=== PATIENT | female | born 1935 | race Caucasian/White ===

== ENCOUNTER → 2016-07-18 | Outpatient (CLI) | payer MEDICARE, OTHER ==
[2016-07-18 18:12] LABS: ALBUMIN 3.4 GM/DL (3.2-5.2); ALBUMIN/GLOBULIN RATIO 0.97 (1.00-1.93); ALKALINE PHOSPHATASE 77 U/L (45-117); ALT/SGPT 14 U/L (12-78); ANION GAP 4 MEQ/L (8-16); AST/SGOT 12 U/L (15-37); BILIRUBIN,TOTAL 0.3 MG/DL (0.2-1.0); BLOOD UREA NITROGEN 20 MG/DL (7-18); CALCIUM LEVEL 8.4 MG/DL (8.8-10.2); CARBON DIOXIDE LEVEL 34 MEQ/L (21-32); CHLORIDE LEVEL 106 MEQ/L (98-107); CHOLESTEROL LEVEL 194 MG/DL (<200); GLOMERULAR FILTRATION RATE > 60.0 (>32); GLUCOSE, FASTING 91 MG/DL (83-110); POTASSIUM SERUM 4.8 MEQ/L (3.5-5.1); SODIUM LEVEL 144 MEQ/L (136-145); TOTAL PROTEIN 6.9 GM/DL (6.4-8.2); TRIGLYCERIDES LEVEL 161 MG/DL (<150)
== END ==
LOC: M WUC 10:50
PROVIDERS: ATTEND Internal Medicine
DX: E11.9 Type 2 diabetes mellitus without complications (principal); E78.00 Pure hypercholesterolemia, unspecified

== ENCOUNTER → 2016-12-30 | Outpatient (REF) | payer MEDICARE, OTHER ==
[~2016-12-30] MED LIST: DICL75TA PO; DRIS50002 PO; FENT10PA TD; METF500T4 PO
[2016-12-30 19:35] LABS: MEAN CORPUSCULAR HEMOGLOBIN 29.7 pg (27.0-33.0); MEAN CORPUSCULAR HGB CONC 32.6 g/dl (32.0-36.5); RED CELL DISTRIBUTION WIDTH 13.9 % (11.5-14.5); WHITE BLOOD COUNT 7.4 K/mm3 (4.0-10.0)
[2016-12-30 19:52] LABS: ALBUMIN 3.3 GM/DL (3.2-5.2); ALBUMIN/GLOBULIN RATIO 0.97 (1.00-1.93); ALKALINE PHOSPHATASE 66 U/L (45-117); ALT/SGPT 16 U/L (12-78); ANION GAP 7 MEQ/L (8-16); AST/SGOT 16 U/L (15-37); BILIRUBIN,TOTAL 0.4 MG/DL (0.2-1.0); BLOOD UREA NITROGEN 19 MG/DL (7-18); CALCIUM LEVEL 9.1 MG/DL (8.8-10.2); CARBON DIOXIDE LEVEL 28 MEQ/L (21-32); CHLORIDE LEVEL 107 MEQ/L (98-107); CHOLESTEROL LEVEL 217 MG/DL (<200); CREATININE FOR GFR 0.68 MG/DL (0.55-1.02); GLOMERULAR FILTRATION RATE > 60.0 (>32); GLUCOSE, FASTING 85 MG/DL (83-110); POTASSIUM SERUM 4.5 MEQ/L (3.5-5.1); SODIUM LEVEL 142 MEQ/L (136-145); TOTAL PROTEIN 6.7 GM/DL (6.4-8.2); TRIGLYCERIDES LEVEL 88 MG/DL (<150)
== END ==
LOC: M SFHCPLAZ 17:25
PROVIDERS: ATTEND Internal Medicine
DX: Z51.81 Encounter for therapeutic drug level monitoring (principal); Z79.899 Other long term (current) drug therapy; E11.9 Type 2 diabetes mellitus without complications; E78.00 Pure hypercholesterolemia, unspecified; E03.9 Hypothyroidism, unspecified; Z79.84 Long term (current) use of oral hypoglycemic drugs
CPT/HCPCS: 36415; 80053; 80061; 83036; 84443; 85027; G0463

== ENCOUNTER 2017-02-27 13:15 | Emergency (ER) | payer MEDICARE, OTHER ==
[~2017-02-27] VITALS: Ht 157.5 cm; Wt 90.5 kg
[2017-02-27] MEDS ORDERED: FENT10PA TD (13:22)
[2017-02-27] MEDS ORDERED: METF500T4 PO (13:22)
[2017-02-27] MEDS ORDERED: DRIS50002 PO (13:22)
--- NOTE | 2017-02-27 15:59 | REP ---
Clinical: Pain and swelling without acute trauma. Technique: AP, lateral, bilateral oblique views of the left hand. Findings: Advanced arthritic and possibly chronic post traumatic degenerative changes are appreciated involving the wrist. Findings include osteopenia with scattered cystic changes throughout the carpal bones as well as erosive/destructive changes involving the scaphoid and lunate bone as well as chronic subluxation at the first carpometacarpal joint and extensive chondrocalcinosis. Longstanding erosive changes along the radial surface are also noted. Overlying soft tissue swelling identified. The metacarpal an and phalangeal bones demonstrate osteopenia and more subtle degenerative changes including joint space narrowing at the interphalangeal joints. Impression: Diffuse swelling and erosive/destructive arthritic degenerative changes primarily noted at the wrist as described above. Findings may represent changes related to both osteoarthritis and inflammatory arthritides. Signed by Stoney Daniel MD 02/27/2017 03:51 P
--- NOTE | 2017-02-27 16:01 | REP ---
Clinical: Pain and swelling without acute trauma. Technique: AP, lateral, bilateral oblique views of the left wrist. Findings: Advanced arthritic and possibly chronic post traumatic degenerative changes are appreciated involving the wrist. Findings include osteopenia with scattered cystic changes throughout the carpal bones as well as erosive/destructive changes involving the scaphoid and lunate bone as well as chronic subluxation at the first carpometacarpal joint and extensive chondrocalcinosis. Longstanding erosive changes along the radial surface are also noted. Overlying soft tissue swelling identified. The metacarpal and first digit phalangeal bones demonstrate osteopenia and more subtle degenerative changes including joint space narrowing and periarticular spurring. Impression: Diffuse swelling and erosive/destructive arthritic degenerative changes primarily noted at the wrist as described above. Findings may represent changes related to both osteoarthritis and inflammatory arthritides. Signed by Stoney Daniel MD 02/27/2017 03:53 P
[2017-02-27] MEDS ORDERED: DICL75TA PO (16:19)
[2017-02-27 16:35] VITALS: BP 150/85
== END 2017-02-27 16:36 | disposition home or self-care (01) ==
LOC: M ED 13:15
DX: M19.032 Primary osteoarthritis, left wrist (principal); M19.042 Primary osteoarthritis, left hand; Z87.891 Personal history of nicotine dependence

== ENCOUNTER → 2017-10-22 | Outpatient (CLI) | payer MEDICARE, OTHER ==
[2017-10-22 18:40] LABS: HEMATOCRIT 44.3 % (36.0-47.0); HEMOGLOBIN 13.9 g/dl (12.0-15.5); MEAN CORPUSCULAR HEMOGLOBIN 28.7 pg (27.0-33.0); MEAN CORPUSCULAR HGB CONC 31.4 g/dl (32.0-36.5); MEAN CORPUSCULAR VOLUME 91.3 fl (80.0-96.0); PLATELET COUNT, AUTOMATED 202 10^3/uL (150-450); RED BLOOD COUNT 4.85 10^6/uL (4.00-5.40); RED CELL DISTRIBUTION WIDTH 14.3 % (11.5-14.5)
[2017-10-22 19:10] LABS: ESTIMATED AVERAGE GLUCOSE 123 MG/DL (60-110); HEMOGLOBIN A1c 5.9 %
[2017-10-22 19:11] LABS: TOTAL 25(OH) VITAMIN D 43.9 NG/ML (30.0-100.0)
[2017-10-22 19:16] LABS: ALBUMIN 3.4 GM/DL (3.2-5.2); ALBUMIN/GLOBULIN RATIO 0.97 (1.00-1.93); ALKALINE PHOSPHATASE 72 U/L (45-117); ALT/SGPT 10 U/L (12-78); ANION GAP 4 MEQ/L (8-16); AST/SGOT 12 U/L (7-37); BILIRUBIN,TOTAL 0.4 MG/DL (0.2-1.0); BLOOD UREA NITROGEN 19 MG/DL (7-18); CALCIUM LEVEL 8.6 MG/DL (8.8-10.2); CARBON DIOXIDE LEVEL 33 MEQ/L (21-32); CHLORIDE LEVEL 106 MEQ/L (98-107); CHOLESTEROL LEVEL 188 MG/DL (<200); CHOLESTEROL RISK RATIO 4.272 (<5); GLOMERULAR FILTRATION RATE > 60.0 (>32); GLUCOSE, FASTING 80 MG/DL (70-100); HDL CHOLESTEROL 44 MG/DL (>40); LDL CHOLESTEROL 126.2 MG/DL (<100); NON-HDL-C 144 MG/DL; POTASSIUM SERUM 4.4 MEQ/L (3.5-5.1); SODIUM LEVEL 143 MEQ/L (136-145); TOTAL PROTEIN 6.9 GM/DL (6.4-8.2); TRIGLYCERIDES LEVEL 89 MG/DL (<150)
== END ==
LOC: M WUC 11:36
DX: G25.81 Restless legs syndrome (principal); E11.9 Type 2 diabetes mellitus without complications; E78.00 Pure hypercholesterolemia, unspecified; E03.9 Hypothyroidism, unspecified; E55.9 Vitamin D deficiency, unspecified
CPT/HCPCS: 84443

== ENCOUNTER → 2017-10-26 | Outpatient (REF) | payer MEDICARE, OTHER | LOC: M SFHCPLAZ 16:02 | DX: G25.81 Restless legs syndrome (principal); E55.9 Vitamin D deficiency, unspecified; E11.9 Type 2 diabetes mellitus without complications; E78.00 Pure hypercholesterolemia, unspecified; E03.9 Hypothyroidism, unspecified; Z53.8 Procedure and treatment not carried out for other reasons ==

== ENCOUNTER → 2018-05-05 | Outpatient (REF) | payer MEDICARE, OTHER ==
[2018-05-05 12:40] LABS: CREATININE, URINE 63.9 MG/DL; MALB URINE SIEMENS 11.2 MG/L; MAU/CREAT RATIO 17.5 MCG/MG (0.0-30.0)
[2018-05-05 12:44] LABS: ALBUMIN 3.1 GM/DL (3.2-5.2); ALBUMIN/GLOBULIN RATIO 0.97 (1.00-1.93); ALKALINE PHOSPHATASE 71 U/L (45-117); ALT/SGPT 9 U/L (12-78); ANION GAP 5 MEQ/L (8-16); AST/SGOT 11 U/L (7-37); BILIRUBIN,TOTAL 0.3 MG/DL (0.2-1.0); BLOOD UREA NITROGEN 16 MG/DL (7-18); CALCIUM LEVEL 9.3 MG/DL (8.8-10.2); CARBON DIOXIDE LEVEL 31 MEQ/L (21-32); CHLORIDE LEVEL 107 MEQ/L (98-107); CHOLESTEROL LEVEL 209 MG/DL (<200); CHOLESTEROL RISK RATIO 4.446 (<5); CREATININE FOR GFR 0.87 MG/DL (0.55-1.30); GLOMERULAR FILTRATION RATE > 60.0 (>32); GLUCOSE, FASTING 98 MG/DL (70-100); HDL CHOLESTEROL 47 MG/DL (>40); LDL CHOLESTEROL 147 MG/DL (<100); NON-HDL-C 162 MG/DL; POTASSIUM SERUM 4.8 MEQ/L (3.5-5.1); SODIUM LEVEL 143 MEQ/L (136-145); TOTAL PROTEIN 6.3 GM/DL (6.4-8.2); TRIGLYCERIDES LEVEL 77 MG/DL (<150)
[2018-05-05 12:46] LABS: ESTIMATED AVERAGE GLUCOSE 114 MG/DL (60-110); HEMOGLOBIN A1c 5.6 %
== END ==
LOC: M SFHCPLAZ 09:04
DX: E11.9 Type 2 diabetes mellitus without complications (principal); E78.00 Pure hypercholesterolemia, unspecified; E03.9 Hypothyroidism, unspecified
CPT/HCPCS: 84443

== ENCOUNTER → 2018-12-05 | Outpatient (CLI) | payer MEDICARE, OTHER ==
[~2018-12-05] MED LIST changes: -DRIS50002 PO; +DRIS50003 PO
[2018-12-05 18:14] LABS: ALBUMIN 3.3 GM/DL (3.2-5.2); ALT/SGPT 10 U/L (12-78); BILIRUBIN,TOTAL 0.3 MG/DL (0.2-1.0); BLOOD UREA NITROGEN 12 MG/DL (7-18); CALCIUM LEVEL 9.2 MG/DL (8.8-10.2); CARBON DIOXIDE LEVEL 35 MEQ/L (21-32); CHLORIDE LEVEL 103 MEQ/L (98-107); CHOLESTEROL LEVEL 197 MG/DL (<200); CHOLESTEROL RISK RATIO 4.191 (<5); CREATININE FOR GFR 0.84 MG/DL (0.55-1.30); GLOMERULAR FILTRATION RATE > 60.0 (>32); GLUCOSE, FASTING 84 MG/DL (70-100); HDL CHOLESTEROL 47 MG/DL (>40); HEMATOCRIT 47.2 % (36.0-47.0); LDL CHOLESTEROL 132 MG/DL (<100); MEAN CORPUSCULAR HEMOGLOBIN 28.2 pg (27.0-33.0); MEAN CORPUSCULAR HGB CONC 31.8 g/dl (32.0-36.5); MEAN CORPUSCULAR VOLUME 88.7 fl (80.0-96.0); NON-HDL-C 150 MG/DL; PLATELET COUNT, AUTOMATED 257 10^3/uL (150-450); RED BLOOD COUNT 5.32 10^6/uL (4.00-5.40); SODIUM LEVEL 142 MEQ/L (136-145); TRIGLYCERIDES LEVEL 90 MG/DL (<150); WHITE BLOOD COUNT 7.8 10^3/uL (4.0-10.0)
[2018-12-05 18:21] LABS: HEMOGLOBIN A1c 5.7 %
[2018-12-05 19:15] LABS: MALB URINE SIEMENS 35.5 MG/L; MAU/CREAT RATIO 17.5 MCG/MG (0.0-30.0)
[2018-12-06 08:35] LABS: TOTAL 25(OH) VITAMIN D 62.2 NG/ML (30.0-100.0)
== END ==
LOC: M WUC 11:57
PROVIDERS: ATTEND Internal Medicine
DX: G25.81 Restless legs syndrome (principal); E11.9 Type 2 diabetes mellitus without complications; E78.00 Pure hypercholesterolemia, unspecified; E03.9 Hypothyroidism, unspecified; E55.9 Vitamin D deficiency, unspecified

== ENCOUNTER → 2019-05-13 | Outpatient (CLI) | payer MEDICARE, OTHER ==
[~2019-05-13] MED LIST changes: +METF-791 PO; -METF500T4 PO
[2019-05-13 13:00] LABS: HEMOGLOBIN A1c 5.3 %
[2019-05-13 13:07] LABS: ALBUMIN 3.3 GM/DL (3.2-5.2); ALT/SGPT 12 U/L (12-78); BILIRUBIN,TOTAL 0.6 MG/DL (0.2-1.0); BLOOD UREA NITROGEN 18 MG/DL (7-18); CALCIUM LEVEL 8.8 MG/DL (8.8-10.2); CARBON DIOXIDE LEVEL 34 MEQ/L (21-32); CHLORIDE LEVEL 102 MEQ/L (98-107); CHOLESTEROL LEVEL 212 MG/DL (<200); CREATININE FOR GFR 0.79 MG/DL (0.55-1.30); GLOMERULAR FILTRATION RATE > 60.0 (>32); GLUCOSE, FASTING 76 MG/DL (70-100); HDL CHOLESTEROL 43 MG/DL (>40); LDL CHOLESTEROL 148 MG/DL (<100); NON-HDL-C 169 MG/DL; POTASSIUM SERUM 4.1 MEQ/L (3.5-5.1); SODIUM LEVEL 141 MEQ/L (136-145); TOTAL PROTEIN 6.9 GM/DL (6.4-8.2); TRIGLYCERIDES LEVEL 105 MG/DL (<150)
== END ==
LOC: M WUC 10:26
PROVIDERS: ATTEND Internal Medicine
DX: E11.9 Type 2 diabetes mellitus without complications (principal); E78.00 Pure hypercholesterolemia, unspecified

== ENCOUNTER → 2019-11-18 | Outpatient (CLI) | payer MEDICARE, OTHER ==
[~2019-11-18] MED LIST changes: -METF-791 PO; +METF-838 PO
[2019-11-18 13:34] LABS: HEMATOCRIT 44.7 % (36.0-47.0); MEAN CORPUSCULAR HEMOGLOBIN 28.6 pg (27.0-33.0); MEAN CORPUSCULAR HGB CONC 31.3 g/dl (32.0-36.5); MEAN CORPUSCULAR VOLUME 91.2 fl (80.0-96.0); PLATELET COUNT, AUTOMATED 208 10^3/uL (150-450); WHITE BLOOD COUNT 7.5 10^3/uL (4.0-10.0)
[2019-11-18 14:31] LABS: HEMOGLOBIN A1c 5.6 %
[2019-11-18 14:38] LABS: ALBUMIN 3.4 GM/DL (3.2-5.2); ALT/SGPT 15 U/L (12-78); BILIRUBIN,TOTAL 0.5 MG/DL (0.2-1.0); BLOOD UREA NITROGEN 19 MG/DL (7-18); CALCIUM LEVEL 8.7 MG/DL (8.8-10.2); CARBON DIOXIDE LEVEL 31 MEQ/L (21-32); CHLORIDE LEVEL 107 MEQ/L (98-107); CHOLESTEROL LEVEL 223 MG/DL (<200); CHOLESTEROL RISK RATIO 4.847 (<5); CREATININE FOR GFR 0.79 MG/DL (0.55-1.30); GLOMERULAR FILTRATION RATE > 60.0 (>32); GLUCOSE, FASTING 69 MG/DL (70-100); HDL CHOLESTEROL 46 MG/DL (>40); LDL CHOLESTEROL 161 MG/DL (<100); MALB URINE SIEMENS 13.9 MG/L; MAU/CREAT RATIO 13.6 MCG/MG (0.0-30.0); NON-HDL-C 177 MG/DL; POTASSIUM SERUM 4.3 MEQ/L (3.5-5.1); SODIUM LEVEL 143 MEQ/L (136-145); TOTAL PROTEIN 6.8 GM/DL (6.4-8.2); TRIGLYCERIDES LEVEL 79 MG/DL (<150)
== END ==
LOC: M WUC 10:28
PROVIDERS: ATTEND Internal Medicine
DX: E11.9 Type 2 diabetes mellitus without complications (principal); E78.00 Pure hypercholesterolemia, unspecified; E03.9 Hypothyroidism, unspecified; G25.81 Restless legs syndrome

== ENCOUNTER → 2020-10-30 | Outpatient (CLI) | payer MEDICARE, OTHER ==
--- NOTE | 2020-10-30 15:13 | REPPI ---
INDICATION: M21.931 RIGHT WRIST DEFORMITY COMPARISON: None. TECHNIQUE: Two views right wrist. FINDINGS: No fracture is seen. There is dislocation of the lunate bone posteriorly peer scaphoid is rotated. Smooth erosive changes seen of the distal articulating surface of the radius. There is moderate narrowing, spurring and subchondral sclerosis at the joint between the trapezium and base of 1st metacarpal. Moderate periarticular calcifications are seen. IMPRESSION: No acute fracture. There is dislocation of the lunate bone posteriorly. Additional arthritic changes as above with moderate degree of periarticular soft tissue calcifications. <Electronically signed by Denis Chan > 10/30/20 [id number]
== END ==
LOC: M PLAIMG 14:40
PROVIDERS: ATTEND Internal Medicine
DX: M21.931 Unspecified acquired deformity of right forearm (principal); M19.031 Primary osteoarthritis, right wrist; E78.00 Pure hypercholesterolemia, unspecified; E11.9 Type 2 diabetes mellitus without complications; E03.9 Hypothyroidism, unspecified; G25.81 Restless legs syndrome; Z11.59 Encounter for screening for other viral diseases
CPT/HCPCS: 36415; 73100; 80053; 80061; 83036; 84443; 85025; G0463; G0472

== ENCOUNTER → 2020-10-30 | Outpatient (REF) | payer MEDICARE, OTHER ==
[2020-10-30 18:05] LABS: BASO % 0.5 % (0.0-1.0); EOS # 0.1 10^3/uL (0.0-0.5); EOS % 1.6 % (0.0-3.0); HEMOGLOBIN 13.3 g/dl (12.0-15.5); LYMPH # 1.8 10^3/uL (1.5-5.0); LYMPH % 28.1 % (24.0-44.0); MEAN CORPUSCULAR HEMOGLOBIN 28.6 pg (27.0-33.0); MEAN CORPUSCULAR HGB CONC 30.9 g/dl (32.0-36.5); MEAN CORPUSCULAR VOLUME 92.5 fl (80.0-96.0); MONO # 0.5 10^3/uL (0.0-0.8); MONO % 7.1 % (2.0-8.0); NEUTROPHILS % 62.1 % (36.0-66.0); PLATELET COUNT, AUTOMATED 202 10^3/uL (150-450); RED BLOOD COUNT 4.65 10^6/uL (4.00-5.40); WHITE BLOOD COUNT 6.5 10^3/uL (4.0-10.0)
[2020-10-30 18:20] LABS: HEMOGLOBIN A1c 5.3 %
[2020-10-30 18:47] LABS: ALBUMIN 3.3 GM/DL (3.2-5.2); ALT/SGPT 17 U/L (12-78); BILIRUBIN,TOTAL 0.3 MG/DL (0.2-1.0); BLOOD UREA NITROGEN 20 MG/DL (7-18); CALCIUM LEVEL 9.2 MG/DL (8.8-10.2); CARBON DIOXIDE LEVEL 29 MEQ/L (21-32); CHLORIDE LEVEL 108 MEQ/L (98-107); CHOLESTEROL LEVEL 204 MG/DL (<200); CHOLESTEROL RISK RATIO 3.642 (<5); CREATININE FOR GFR 0.56 MG/DL (0.55-1.30); GLOMERULAR FILTRATION RATE > 60.0 (>32); GLUCOSE, FASTING 72 MG/DL (70-100); HDL CHOLESTEROL 56 MG/DL (>40); LDL CHOLESTEROL 139 MG/DL (<100); NON-HDL-C 148 MG/DL; POTASSIUM SERUM 4.3 MEQ/L (3.5-5.1); SODIUM LEVEL 142 MEQ/L (136-145); TOTAL PROTEIN 6.6 GM/DL (6.4-8.2); TRIGLYCERIDES LEVEL 47 MG/DL (<150)
== END ==
LOC: M SFHCPLAZ 14:18
PROVIDERS: ATTEND Internal Medicine
DX: E78.00 Pure hypercholesterolemia, unspecified (principal); E11.9 Type 2 diabetes mellitus without complications; E03.9 Hypothyroidism, unspecified; G25.81 Restless legs syndrome; Z11.59 Encounter for screening for other viral diseases

== ENCOUNTER 2021-01-15 18:05 | Inpatient (IN) | payer MEDICARE, OTHER ==
[~2021-01-15] VITALS: Ht 157.5 cm; Wt 89.5 kg
[2021-01-15] MEDS ORDERED: ERGO500029 PO (18:26)
[2021-01-15] MEDS ORDERED: TORS20TA2 PO (18:26)
[2021-01-15] MEDS ORDERED: LEVO25TA5 PO (18:26)
[2021-01-15] MEDS ORDERED: FUROSEMIDE 40MG/4ML VIAL (J1940) IV ONE (19:35)
[2021-01-15 20:19] LABS: BASO % 0.3 % (0.0-1.0); EOS # 0.1 10^3/uL (0.0-0.5); EOS % 1.2 % (0.0-3.0); HEMATOCRIT 41.1 % (36.0-47.0); HEMOGLOBIN 13.3 g/dl (12.0-15.5); LYMPH # 1.8 10^3/uL (1.5-5.0); LYMPH % 25.6 % (24.0-44.0); MEAN CORPUSCULAR HEMOGLOBIN 29.1 pg (27.0-33.0); MEAN CORPUSCULAR HGB CONC 32.4 g/dl (32.0-36.5); MEAN CORPUSCULAR VOLUME 89.9 fl (80.0-96.0); MONO # 0.5 10^3/uL (0.0-0.8); MONO % 7.3 % (2.0-8.0); NEUTROPHILS # 4.5 10^3/uL (1.5-8.5); NEUTROPHILS % 65.2 % (36.0-66.0); PLATELET COUNT, AUTOMATED 219 10^3/uL (150-450); RED BLOOD COUNT 4.57 10^6/uL (4.00-5.40); WHITE BLOOD COUNT 6.9 10^3/uL (4.0-10.0)
[2021-01-15 20:41] LABS: RSV AMPLIFICATION NEGATIVE (NEGATIVE)
[2021-01-15 20:44] LABS: BLOOD UREA NITROGEN 23 MG/DL (7-18); C REACTIVE PROTEIN QUANTITATIV 0.44 MG/DL (0.00-0.30); CALCIUM LEVEL 9.3 MG/DL (8.8-10.2); CARBON DIOXIDE LEVEL 33 MEQ/L (21-32); CHLORIDE LEVEL 106 MEQ/L (98-107); CREATININE FOR GFR 0.93 MG/DL (0.55-1.30); GLOMERULAR FILTRATION RATE > 60.0 (>32); GLUCOSE, FASTING 81 MG/DL (70-100); NT-PRO BNP 116 PG/ML (<450); POTASSIUM SERUM 3.8 MEQ/L (3.5-5.1); SODIUM LEVEL 142 MEQ/L (136-145)
[2021-01-15] MEDS: DOCUSATE SODIUM 100MG CAPSULE PO SCH (21:00)
--- NOTE | 2021-01-15 21:40 | REPVR ---
PROCEDURE INFORMATION: Exam: US Duplex Lower Extremity Veins, Bilateral Exam date and time: 01/15/2021 8:28 PM Age: 85 years old Clinical indication: Edema, localized; Lower extremity, bilateral; Additional info: Bilateral leg swelling, right greater than left TECHNIQUE: Imaging protocol: Real-time duplex ultrasound of the extremities with 2-D kraus scale, color Doppler flow and spectral waveform analysis with image documentation. Complete exam focused on the bilateral lower extremity veins. COMPARISON: No relevant prior studies available. FINDINGS: Right deep veins: Unremarkable. The common femoral, femoral, proximal profunda femoral and popliteal veins are patent without thrombus. Normal Doppler waveforms. Normal compressibility and/or augmentation response. Right superficial veins: Saphenofemoral junction is patent without thrombus. Left deep veins: Unremarkable. The common femoral, femoral, proximal profunda femoral and popliteal veins are patent without thrombus. Normal Doppler waveforms. Normal compressibility and/or augmentation response. Left superficial veins: Saphenofemoral junction is patent without thrombus. Soft tissues: Subcutaneous edema throughout both forelegs, worse on the right. No drainable fluid collections. IMPRESSION: 1. No evidence of deep vein thrombosis. 2. Subcutaneous edema. Electronically signed by: Mohsen Hoyos On 01/15/2021 21:40:28 PM
[2021-01-15] MEDS ORDERED: ONDANSETRON 4MG/2ML VIAL IV ONE (22:05)
[2021-01-15] MEDS ORDERED: MORPHINE 2 MG/ML 1ML VIAL (J2270) IV PRN (22:05)
--- NOTE | 2021-01-15 22:48 | HPEPDOC ---
[facility] Medical History & Physical Date of Admission Jan 15, 2021 Date of Service: Jan 15, 2021 History and Physical CHIEF COMPLAINT: Worsening Lower extremity swelling HISTORY OF PRESENT ILLNESS: 85-year-old female history of lymphedema in lower extremity swelling who called her PCP office today Dr. mosqueda complaining of worsening lower extremity edema and was instructed to come to the emergency department. In the emergency department patient complains that over the past several weeks her lower extremity edema has been worsening making it difficult to ambulate. She tells me she lives at home alone she is independent. Per Dr. Calle office she's been noncompliant with her torsemide although the patient disagrees. Patient complains of significant lower extremity pain bilaterally has been ongoing for many weeks. denies fevers or chills. Denies noticing any pus coming from her lower extremity. Patient will be admitted for management of worsening lower extremity edema with IV diureses and pain control. Lower extremity duplex ultrasound was negative for DVT PAST MEDICAL/SURGICAL HISTORY: Iog-[id number] diabetes mellitus Hypothyroidism Morbid obesity Chronic lower extremity edema Urinary incontinence Restless leg syndrome Osteoarthritis Tonsillectomy Hemorrhoidectomy D&C Transabdominal nephrolithotomy Hysterectomy Right knee replacement Breast reduction surgery Bilateral cataract surgery Right hip replacement Right carpal tunnel release SOCIAL HISTORY: Denies alcohol use Denies tobacco use Denies illicit drug use FAMILY HISTORY: Reviewed and none contributory to this admission ALLERGIES: Please see below. REVIEW OF SYSTEMS: 10 point review of systems complete all negative otherwise stated in HPI HOME MEDICATIONS: Please see below. PHYSICAL EXAMINATION: Constitutional: Awake and alert, in no apparent distress ENT: Sclera are clear. Mucosa is moist. Respiratory: Lungs diminished breath sounds bilaterally. No respiratory distress. Cardiovascular: Regular rate and rhythm Gastrointestinal: Abdomen is soft, non distended, non tender, BS present. Obese. Musculoskeletal: Significant bilateral lower extremity edema nonpitting. Weeping. Skin appears irritated. Neurologic: No focal neurological deficit. Mental Status: A&O x3, normal affect. Very talkative and tangential LABORATORY DATA: See below. IMAGING: See chart MICROBIOLOGY: Please see below. ASSESSMENT/PLAN 85-year-old female presents with worsening lower extremity edema known history of lymphedema with medication none compliance with torsemide having difficulty ambulating and lower extremity pain admitted for further medical workup and management. # Worsening lower extremity edema: None compliant with torsemide at home. IV Lasix. Monitor ins and outs. Fluid restriction. Obtain echo. Lower extremity duplex negative for DVT. No signs of infection of the lower extremities although it is weepy and painful this is likely explained by the swelling she has no fever or leukocytosis. # Lower extremity bilateral pain: Likely from the extensive lower extremity edema. Tylenol as needed and IV morphine for breakthrough pain # DM: ISS. Frequent Accu-Cheks. Hypoglycemic precautions. Hold home metformin # Hypothyroidism: resume Synthroid. # Obesity: BMI 36. Complicates care # DVT prophylaxis: Lovenox A [facility] Hospitalist Vital Signs Vital Signs Date Time Temp Pulse Resp B/P (MAP) Pulse Ox O2 Delivery O2 Flow Rate FiO2 01/15/21 22:45 89 20 102/61 94 Room Air 01/15/21 18:05 98.5 Laboratory Data Labs 24H Laboratory Tests 2 01/15/21 19:45: Immature Granulocyte % (Auto) 0.4, Neutrophils (%) (Auto) 65.2, Lymphocytes (%) (Auto) 25.6, Monocytes (%) (Auto) 7.3, Eosinophils (%) (Auto) 1.2, Basophils (%) (Auto) 0.3, Neutrophils # (Auto) 4.5, Lymphocytes # (Auto) 1.8, Monocytes # (Auto) 0.5, Eosinophils # (Auto) 0.1, Basophils # (Auto) 0.0, Nucleated Red Blood Cells % (auto) 0.0, Anion Gap 3L, Glomerular Filtration Rate > 60.0, Calcium Level 9.3, C-Reactive Protein, Quantitative 0.44H, JG-Shm-P-Type Natriuretic Peptide 116, Coronavirus (COVID-19)(PCR) NEGATIVE, Influenza Type A (RT-PCR) NEGATIVE, Influenza Type B (RT-PCR) NEGATIVE, Respiratory Syncytial Virus (PCR) NEGATIVE CBC/BMP Laboratory Tests 01/15/21 19:45 Microbiology Microbiology 01/15/21 Blood Culture, Received Pending 01/15/21 Blood Culture, Received Pending Home Medications Scheduled Ergocalciferol (Vitamin D2) (Vitamin D2) 50,000 Units Cap, 50,000 UNITS PO Q2WK Levothyroxine Sodium (Levothyroxine Sodium) 25 Mcg Tablet, 25 MCG PO DAILY Metformin HCl (Metformin HCl ER) 500 Mg Tab, 500 MG PO DAILY TAKES WITH LUNCH BETWEEN [id number] Torsemide (Torsemide) 20 Mg Tablet, 20 MG PO DAILY Allergies Coded Allergies: Penicillins (Verified Allergy, Intermediate, swelling, 01/15/21) HILDA ELAM MD Jan 15, 2021 22:48
[2021-01-15] MEDS ORDERED: HOME MED LIST COMPLETE! XX SCH (23:05)
[2021-01-16] MEDS ORDERED: MOM 30ML SUSPENSION UDC PO PRN (00:20)
[2021-01-16] MEDS ORDERED: ACETAMINOPHEN TAB 650MG DOSE (2X325MG) PO PRN (00:20)
[2021-01-16] MEDS ORDERED: MAALOX 30 ML SUSP *UDC PO PRN (00:20)
[2021-01-16 01:32] VITALS: BP 117/66
[2021-01-16] MEDS ORDERED: MORPHINE 2 MG/ML 1ML VIAL (J2270) IV PRN (02:45)
[2021-01-16] MEDS ORDERED: GLUCAGON INJ 1MG VIAL SC PRN (03:35)
[2021-01-16] MEDS ORDERED: DEXTROSE 50% 50 ML SYRINGE IV PRN (03:35)
[2021-01-16] MEDS ORDERED: GLUCOSE 4GM CHEW TABLET PO PRN (03:35)
[2021-01-16 06:00] VITALS: BP 114/64
[2021-01-16 06:07] LABS: HEMATOCRIT 40.5 % (36.0-47.0); HEMOGLOBIN 13.1 g/dl (12.0-15.5); MEAN CORPUSCULAR HEMOGLOBIN 29.1 pg (27.0-33.0); MEAN CORPUSCULAR HGB CONC 32.3 g/dl (32.0-36.5); PLATELET COUNT, AUTOMATED 191 10^3/uL (150-450); WHITE BLOOD COUNT 7.2 10^3/uL (4.0-10.0)
[2021-01-16 06:36] LABS: ALBUMIN 3.2 GM/DL (3.2-5.2); ALT/SGPT 14 U/L (12-78); BILIRUBIN,TOTAL 0.5 MG/DL (0.2-1.0); BLOOD UREA NITROGEN 23 MG/DL (7-18); CALCIUM LEVEL 9.4 MG/DL (8.8-10.2); CARBON DIOXIDE LEVEL 33 MEQ/L (21-32); CHLORIDE LEVEL 106 MEQ/L (98-107); CREATININE FOR GFR 0.87 MG/DL (0.55-1.30); GLOMERULAR FILTRATION RATE > 60.0 (>32); GLUCOSE, FASTING 93 MG/DL (70-100); POTASSIUM SERUM 3.8 MEQ/L (3.5-5.1); SODIUM LEVEL 143 MEQ/L (136-145); TOTAL PROTEIN 6.6 GM/DL (6.4-8.2)
[2021-01-16] MEDS: HumaLOG INSULIN (NovoLOG) PER UNIT SC SCH ×4 (07:47→20:46)
[2021-01-16] MEDS: DOCUSATE SODIUM 100MG CAPSULE PO SCH ×2 (10:06→22:25)
[2021-01-16] MEDS: LEVOTHYROXINE 25MCG TABLET (0.025MG) PO SCH (10:06)
[2021-01-16] MEDS: ENOXAPARIN 40MG/0.4ML SYRINGE (J1650 PER 10MG) SC SCH (10:06)
[2021-01-16] MEDS: FUROSEMIDE 40MG/4ML VIAL (J1940) IV SCH ×2 (10:07→18:04)
--- NOTE | 2021-01-16 13:26 | IPNPDOC ---
Text Note Date of Service The patient was seen on 01/16/21. NOTE Subjective: Patient continues to complain of the feet swelling. Denies fever, chills, recurrent diarrhea or dysuria Objective: GENERAL APPEARANCE: NAD HEENT: no scleral icterus, no JVD, EOMI CARDIOVASCULAR: S1S2 LUNGS: CTA ABDOMEN: soft & not tender w palpation MUSCULOSKELETAL: no cyanosis, bilateral swelling of distal leg, +2 pitting edema with skin exfoliation's, left distal leg erythema, chronic skin changes consistent with venous stasis INTEGUMENT: no generalized pallor NEUROLOGICAL: cranial nerve function from 2-12 intact i, follows commands, speech not dysarthric Assessment and plan Patient is 85 years old female with past medical history of lymphedema presented to hospital with worsening leg swelling Chronic bilateral lymphedema Compression stockings, intermittent pneumatic compression According to the guidelines diuretics will not help -echo to rule out CHF Legs elevation PT OT Appreciate/agree with administrative specialist consult Cellulitis Most likely secondary to chronic lymphedema and venous stasis Doxycycline p.o. twice daily Diabetes type 2 Insulin sliding scale Diabetes diet Morbid obesity BMI of 36.1 Complicated care Hypothyroidism Continue levothyroxine VS,Fishbone, I+O VS, Fishbone, I+O Laboratory Tests 01/15/21 19:45 01/16/21 05:39 Vital Signs Date Time Temp Pulse Resp B/P (MAP) Pulse Ox O2 Delivery O2 Flow Rate FiO2 01/16/21 06:00 97.7 74 18 114/64 (81) 99 Room Air JOSE SALMON Jan 16, 2021 13:26
[2021-01-16 14:00] VITALS: BP 108/57
[2021-01-16] MEDS: DOXYCYCLINE HYCLATE 100MG TABLET PO SCH ×2 (14:21→22:25)
[2021-01-16 22:00] VITALS: BP 122/96
[2021-01-17 05:49] LABS: BASO % 0.2 % (0.0-1.0); EOS # 0.1 10^3/uL (0.0-0.5); EOS % 1.6 % (0.0-3.0); HEMATOCRIT 39.6 % (36.0-47.0); HEMOGLOBIN 12.7 g/dl (12.0-15.5); LYMPH # 0.7 10^3/uL (1.5-5.0); LYMPH % 14.5 % (24.0-44.0); MEAN CORPUSCULAR HEMOGLOBIN 29.1 pg (27.0-33.0); MEAN CORPUSCULAR HGB CONC 32.1 g/dl (32.0-36.5); MEAN CORPUSCULAR VOLUME 90.8 fl (80.0-96.0); MONO # 0.3 10^3/uL (0.0-0.8); MONO % 6.3 % (2.0-8.0); NEUTROPHILS # 3.9 10^3/uL (1.5-8.5); NEUTROPHILS % 76.8 % (36.0-66.0); PLATELET COUNT, AUTOMATED 181 10^3/uL (150-450); RED BLOOD COUNT 4.36 10^6/uL (4.00-5.40); WHITE BLOOD COUNT 5.1 10^3/uL (4.0-10.0)
[2021-01-17 06:00] VITALS: BP 108/57
[2021-01-17 06:11] LABS: ALBUMIN 2.9 GM/DL (3.2-5.2); ALT/SGPT 14 U/L (12-78); BILIRUBIN,TOTAL 0.5 MG/DL (0.2-1.0); BLOOD UREA NITROGEN 24 MG/DL (7-18); CALCIUM LEVEL 8.7 MG/DL (8.8-10.2); CARBON DIOXIDE LEVEL 34 MEQ/L (21-32); CHLORIDE LEVEL 105 MEQ/L (98-107); CREATININE FOR GFR 0.87 MG/DL (0.55-1.30); GLOMERULAR FILTRATION RATE > 60.0 (>32); GLUCOSE, FASTING 104 MG/DL (70-100); POTASSIUM SERUM 3.1 MEQ/L (3.5-5.1); SODIUM LEVEL 145 MEQ/L (136-145)
[2021-01-17] MEDS: HumaLOG INSULIN (NovoLOG) PER UNIT SC SCH ×4 (07:30→21:00)
[2021-01-17] MEDS ORDERED: POTASSIUM CHLORIDE 10 MEQ SR TABLET PO ONE (08:00)
[2021-01-17] MEDS: LEVOTHYROXINE 25MCG TABLET (0.025MG) PO SCH (09:18)
[2021-01-17] MEDS: ENOXAPARIN 40MG/0.4ML SYRINGE (J1650 PER 10MG) SC SCH (09:18)
[2021-01-17] MEDS: DOXYCYCLINE HYCLATE 100MG TABLET PO SCH ×2 (09:18→22:06)
[2021-01-17] MEDS: DOCUSATE SODIUM 100MG CAPSULE PO SCH ×2 (09:18→22:06)
[2021-01-17] MEDS: FUROSEMIDE 40MG/4ML VIAL (J1940) IV SCH ×2 (09:19→16:52)
[2021-01-17] MEDS ORDERED: ACET1TAB55 PO (10:02)
[2021-01-17] MEDS ORDERED: DOXY100T PO (10:02)
--- NOTE | 2021-01-17 13:27 | IPNPDOC ---
Text Note Date of Service The patient was seen on 01/17/21. NOTE Subjective: Patient stated that leg swelling markedly improved today. No fever or chills Objective: GENERAL APPEARANCE: NAD HEENT: no scleral icterus, no JVD, EOMI CARDIOVASCULAR: S1S2 LUNGS: CTA ABDOMEN: soft & not tender w palpation MUSCULOSKELETAL: no cyanosis, bilateral swelling of distal leg, +1 pitting edema with skin exfoliation's, mild left distal leg erythema, chronic skin changes consistent with venous stasis INTEGUMENT: no generalized pallor NEUROLOGICAL: cranial nerve function from 2-12 intact i, follows commands, speech not dysarthric Assessment and plan Patient is 85 years old female with past medical history of lymphedema presented to hospital with worsening leg swelling Chronic bilateral lymphedema Compression stockings, intermittent pneumatic compression -echo to rule out CHF Legs elevation PT OT, follow-up with lymphedema clinic Appreciate/agree with psychological operations specialist consult Cellulitis Most likely secondary to chronic lymphedema and venous stasis Doxycycline p.o. twice daily Diabetes type 2 Insulin sliding scale Diabetes diet Morbid obesity BMI of 36.1 Complicated care Hypothyroidism Continue levothyroxine VS,Fishbone, I+O VS, Fishbone, I+O Laboratory Tests 01/17/21 05:35 Vital Signs Date Time Temp Pulse Resp B/P (MAP) Pulse Ox O2 Delivery O2 Flow Rate FiO2 01/17/21 06:00 97.5 66 18 108/57 (74) 99 Room Air I&O- Last 24 Hours up to 6 AM0 01/17/21 06:00 Intake Total 1300 ml Output Total 800 ml Balance 500 ml JOSE SALMON DO Jan 17, 2021 13:27
[2021-01-17 14:00] VITALS: BP 116/78
--- NOTE | 2021-01-17 16:59 | ECHO ---
ECHOCARDIOGRAM DATE OF PROCEDURE: 01/16/2021 Age: 85 Gender: Female Height: 62 inches Weight: 198 pounds Body surface area: 1.91 m2 Inpatient. [facility], room 4211. REFERRING PROVIDER: Dr. Joe Iraheta INDICATION: Edema MEASUREMENTS: 2D Measurements: RV - 3.0 cm LV - 4.1 cm Septum 1.2 cm Posterior wall 1.1 cm Aortic root 3.8 cm LA - 4.1 cm LVEF 75% Doppler Measurements: AV - 1.15 m2 LVOT - 0.8 msec LVOT diameter 1.8 cm MV-E 45, A 76, E/A ratio 0.6 Early mitral deceleration time 285 msec E prime medial 4.9 A prime medial 10 E prime lateral 8.2 PV - 0.8 m/s Pulmonary artery acceleration time 120 msec RVSP 28 mmHg IVC - 1.5 cm COMMENTS: Normal sinus rhythm without intraventricular conduction disturbance. Technically challenging study in light of the patient's body habitus, but diagnostically useful information was still obtained. M-mode and 2-dimensional echocardiography was performed with pulse, continuous wave, color flow, and tissue Doppler studies. Borderline concentric left ventricular hypertrophy with hyperkinetic wall motion. Mildly dilated left atrium with grade 1 LV diastolic dysfunction but currently normal estimated mean left atrial pressure. Normal right heart chamber sizes and motion and estimated pulmonary artery pressure. Normal IVC size and collapse against an elevated central venous pressure. Normal aortic dimensions. Slight aortic valvular sclerosis without functional abnormality. Slight mitral annular thickening but normal leaflet thickness and excursion with no posterior systolic buckling. No apparent insufficiency. Normal-appearing tricuspid valve with trace insufficiency. No apparent intracardiac mass or pericardial effusion.
[2021-01-17] MEDS: DIMETHICONE 2% OINTMENT(VANICREAM) 70GM TUBE TOP SCH (19:47)
--- NOTE | 2021-01-17 19:53 | CR ---
ADVANCED WOUND CARE CONSULTATION DATE: 01/17/2021 REQUESTING PHYSICIAN: Dr. Job Guerra REASON FOR CONSULTATION: Lower extremity lymphedema venous stasis disease and treatment options Wound care Telemedicine provides a visual assessment of a wound or wounds without the benefit of physical examination. It can assist with establishing a diagnosis and etiology. This allows for an initial treatment plan. As wounds often change, it may be necessary to modify the original care. Our recommendation is periodic wound reassessment to monitor treatment. Failure to comply may result in non healing of the wound or wounds, possible complications and/or a poor outcome. The recommendations given will serve as treatment options. As I will not be following this patient, this care plan will require the attending physician to give and sign the orders. Upon discharge, outpatient follow up can be scheduled at our [facility]. HISTORY OF PRESENT ILLNESS: An 85-year-old morbidly obese female who sleeps in a recliner, unable to get in and out of her bed herself, was admitted for superficial venous ulcers associated with worsening of right and left lower extremity edema. The patient has lymphedema and this is complicated by venous stasis insufficiency. The patient was originally seen in our clinic on 06/08/2015 for similar problems. At that time her wounds were treated, support stockings were issued, and the patient was referred to Lymphedema Clinic. She has not been seen in our clinic since 08/23/2015. When evaluated today, the patient has bilateral lower extremity lymphedema with a positive, bilateral Stemmer's signs. The patient additionally has venous stasis changes to the skin of her distal lower extremities which include pitting edema, superficial crusting and scaling of the epidermis with a serous drainage. . There is a wound involving the left lower extremity medial malleolar area measuring 1.0 cm by 2.0 cm. The wound base shows crusting, mild ischemic wound edges however the wound base cannot be fully visualized. Both right and left lower extremities, the distal pretibial areas show dry, scaly, superficial, partially healed venous stasis ulcers. At present these are not draining. Chronic venous stasis disease with reflux will produce changes to the subcutaneous tissue called lipodermatosclerosis. Protein rich fluid leaks out of the venous system into the subcutaneous tissue and causes chronic irritation, and Inflammation which over a period of time eventually produces diffuse fibrotic tissue. A non pitting brawny edema is the end results. Lymphatic channels run parallel to the veins and these become obliterated from the fibrosis. In short, the two modes of returning fluid from the lower extremities have been compromised. TREATMENT: The patient has had a venous ultrasound but this was a supine study and does not show any deep vein thrombosis. The patient will require bilateral arterial ultrasounds to further evaluate any distal arterial disease. If this is not present, the patient would be a candidate for compression therapy. Standing venous ultrasounds would also be indicated to evaluate for venous reflux. The basic treatment, barring any arterial disease would be elevation and compression. The fact that the patient cannot sleep in a bed is a major treatment problem for her condition and further improvement will be difficult. A moisturizer to both right and left lower extremities should be applied and daily cleansing of the legs with a mild soap such as Eliecer's Baby Shampoo with surfactin should be utilized. Using a washcloth to provide minor abrasion while cleaning will remove crusty, dry scales. These represent necrosis of the keratin layer of the epidermis and should be removed as they harbor biofilm. In terms of the left medial malleolar wound, this should be cleansed with Vashe for 10 minutes and covered with a foam dressing. Mild Trendelenburg position of her bed is required and bilateral TubiGrip support stockings should be measured and applied. Once arterial ultrasounds have been obtained, bilateral standing venous ultrasounds would be also indicated. Upon discharge, we would be glad to see the patient in consultation. Referral to a lymphedema clinic is also a possibility, however this is a Thursday, Thursday, Thursday treatment for 4-6 weeks and requires patient commitment, which may be difficult at this patient's age. There is no indication for antibiotic therapy. MTDD
[2021-01-17 22:00] VITALS: BP 127/73
[2021-01-18 06:00] VITALS: BP 132/60
[2021-01-18 06:01] LABS: BASO % 0.6 % (0.0-1.0); EOS # 0.1 10^3/uL (0.0-0.5); EOS % 1.9 % (0.0-3.0); HEMATOCRIT 40.4 % (36.0-47.0); HEMOGLOBIN 12.8 g/dl (12.0-15.5); LYMPH # 1.5 10^3/uL (1.5-5.0); LYMPH % 28.6 % (24.0-44.0); MEAN CORPUSCULAR HEMOGLOBIN 28.8 pg (27.0-33.0); MEAN CORPUSCULAR HGB CONC 31.7 g/dl (32.0-36.5); MEAN CORPUSCULAR VOLUME 90.8 fl (80.0-96.0); MONO # 0.6 10^3/uL (0.0-0.8); MONO % 11.3 % (2.0-8.0); PLATELET COUNT, AUTOMATED 195 10^3/uL (150-450); RED BLOOD COUNT 4.45 10^6/uL (4.00-5.40); WHITE BLOOD COUNT 5.2 10^3/uL (4.0-10.0)
[2021-01-18 06:32] LABS: BILIRUBIN,TOTAL 0.5 MG/DL (0.2-1.0); CALCIUM LEVEL 8.8 MG/DL (8.8-10.2); CREATININE FOR GFR 0.99 MG/DL (0.55-1.30); GLOMERULAR FILTRATION RATE 56.6 (>32); MAGNESIUM LEVEL 2.1 MG/DL (1.8-2.4); POTASSIUM SERUM 3.7 MEQ/L (3.5-5.1); TOTAL PROTEIN 6.1 GM/DL (6.4-8.2)
[2021-01-18] MEDS: HumaLOG INSULIN (NovoLOG) PER UNIT SC SCH ×4 (07:30→21:00)
[2021-01-18] MEDS: ENOXAPARIN 40MG/0.4ML SYRINGE (J1650 PER 10MG) SC SCH (09:23)
[2021-01-18] MEDS: DOCUSATE SODIUM 100MG CAPSULE PO SCH ×2 (09:24→22:30)
[2021-01-18] MEDS: FUROSEMIDE 40MG/4ML VIAL (J1940) IV SCH (09:24)
[2021-01-18] MEDS: LEVOTHYROXINE 25MCG TABLET (0.025MG) PO SCH (09:24)
[2021-01-18] MEDS: DOXYCYCLINE HYCLATE 100MG TABLET PO SCH ×2 (09:24→22:30)
[2021-01-18] MEDS: DIMETHICONE 2% OINTMENT(VANICREAM) 70GM TUBE TOP SCH (09:24)
--- NOTE | 2021-01-18 11:37 | REP ---
INDICATION: PVD. COMPARISON: None. TECHNIQUE: Bilateral lower extremity arterial Doppler ultrasound. FINDINGS: The patient was unable to tolerate compression of the lower extremities for ankle brachial index on either side. Exam quality was somewhat inhibited by add edema and dermal changes. Severe plaquing is seen bilaterally. Monophasic arterial Doppler waveforms are noted throughout the right lower extremity and distal to and including the proximal SFA on the left. No high-grade stenosis or occlusion is identified in either lower extremity. Right lower extremity arterial Doppler velocity chart: Right MANUFACTURING ENGINEER MACHINING PSV 77 cm/S Profundal 77 Proximal SFA 104 Mid SFA 98 Distal SFA 82 Popliteal 73 Proximal SUKI 131/53 Tibial-peroneal trunk 59 Proximal SUPERINTENDENT CEMETERY 53 Distal SUPERINTENDENT CEMETERY not seen Distal SUKI 48 Left lower extremity arterial Doppler velocity chart: Left MANUFACTURING ENGINEER MACHINING PSV 88 cm/S Profundal 62 Proximal SFA 120 Mid SFA 96 Distal SFA 60 Popliteal 68 Proximal SUKI 62 Tibial-peroneal trunk 67 Proximal SUPERINTENDENT CEMETERY 58 Distal SUPERINTENDENT CEMETERY 45 Distal SUKI 54 IMPRESSION: Extensive severe plaquing bilaterally. No high-grade stenosis or occlusion. Monophasic arterial Doppler waveforms bilaterally. <Electronically signed by Ashish Capone > 01/18/21 [id number]
[2021-01-18 14:00] VITALS: BP 121/81
--- NOTE | 2021-01-18 14:42 | IPNPDOC ---
Text Note Date of Service The patient was seen on 01/18/21. NOTE Subjective: No fever or chills. No any acute events overnight Objective: GENERAL APPEARANCE: NAD HEENT: no scleral icterus, no JVD, EOMI CARDIOVASCULAR: S1S2 LUNGS: CTA ABDOMEN: soft & not tender w palpation MUSCULOSKELETAL: no cyanosis, bilateral swelling of distal leg, +1 pitting edema with skin exfoliation's, mild left distal leg erythema, chronic skin changes consistent with venous stasis INTEGUMENT: no generalized pallor NEUROLOGICAL: cranial nerve function from 2-12 intact i, follows commands, speech not dysarthric Assessment and plan Patient is 85 years old female with past medical history of lymphedema presented to hospital with worsening leg swelling Chronic bilateral lymphedema Compression stockings, intermittent pneumatic compression -echo shows EF 75% with grade 1 LV diastolic dysfunction Legs elevation PT /OT, follow-up with lymphedema clinic clarity specialists rec arterial Doppler ultrasound and bilateral standing venous ultrasound Cellulitis Most likely secondary to chronic lymphedema and venous stasis Doxycycline p.o. twice daily Diabetes type 2 Insulin sliding scale Diabetes diet Morbid obesity BMI of 36.1 Complicated care Hypothyroidism Continue levothyroxine VS,Fishbone, I+O VS, Fishbone, I+O Laboratory Tests 01/18/21 05:45 Vital Signs Date Time Temp Pulse Resp B/P (MAP) Pulse Ox O2 Delivery O2 Flow Rate FiO2 01/18/21 06:00 96.9 72 18 132/60 (84) 100 Room Air I&O- Last 24 Hours up to 6 AM 01/18/21 06:00 Intake Total 1500 ml Output Total 400 ml Balance 1100 ml JOSE SALMON DO Jan 18, 2021 14:42
[2021-01-18 22:00] VITALS: BP 118/76
[2021-01-19 06:00] VITALS: BP 131/63
[2021-01-19 07:01] LABS: BASO % 0.4 % (0.0-1.0); EOS # 0.1 10^3/uL (0.0-0.5); EOS % 2.3 % (0.0-3.0); HEMATOCRIT 41.4 % (36.0-47.0); HEMOGLOBIN 13.3 g/dl (12.0-15.5); LYMPH # 1.7 10^3/uL (1.5-5.0); LYMPH % 33.2 % (24.0-44.0); MEAN CORPUSCULAR HEMOGLOBIN 29.2 pg (27.0-33.0); MEAN CORPUSCULAR HGB CONC 32.1 g/dl (32.0-36.5); MONO # 0.5 10^3/uL (0.0-0.8); MONO % 8.6 % (2.0-8.0); NEUTROPHILS # 2.9 10^3/uL (1.5-8.5); NEUTROPHILS % 54.7 % (36.0-66.0); PLATELET COUNT, AUTOMATED 201 10^3/uL (150-450); RED BLOOD COUNT 4.55 10^6/uL (4.00-5.40); WHITE BLOOD COUNT 5.2 10^3/uL (4.0-10.0)
[2021-01-19] MEDS: HumaLOG INSULIN (NovoLOG) PER UNIT SC SCH ×4 (07:30→21:00)
[2021-01-19 07:33] LABS: ALBUMIN 2.9 GM/DL (3.2-5.2); ALT/SGPT 15 U/L (12-78); BILIRUBIN,TOTAL 0.4 MG/DL (0.2-1.0); BLOOD UREA NITROGEN 27 MG/DL (7-18); CALCIUM LEVEL 9.1 MG/DL (8.8-10.2); CARBON DIOXIDE LEVEL 34 MEQ/L (21-32); CHLORIDE LEVEL 104 MEQ/L (98-107); CREATININE FOR GFR 0.75 MG/DL (0.55-1.30); GLOMERULAR FILTRATION RATE > 60.0 (>32); GLUCOSE, FASTING 88 MG/DL (70-100); MAGNESIUM LEVEL 2.1 MG/DL (1.8-2.4); POTASSIUM SERUM 3.6 MEQ/L (3.5-5.1); SODIUM LEVEL 141 MEQ/L (136-145); TOTAL PROTEIN 6.1 GM/DL (6.4-8.2)
[2021-01-19] MEDS: LEVOTHYROXINE 25MCG TABLET (0.025MG) PO SCH (10:15)
[2021-01-19] MEDS: DIMETHICONE 2% OINTMENT(VANICREAM) 70GM TUBE TOP SCH (10:15)
[2021-01-19] MEDS: ENOXAPARIN 40MG/0.4ML SYRINGE (J1650 PER 10MG) SC SCH (10:15)
[2021-01-19] MEDS: DOXYCYCLINE HYCLATE 100MG TABLET PO SCH ×2 (10:15→21:45)
[2021-01-19] MEDS: DOCUSATE SODIUM 100MG CAPSULE PO SCH ×2 (10:15→21:45)
--- NOTE | 2021-01-19 11:54 | IPNPDOC ---
Text Note Date of Service The patient was seen on 01/19/21. NOTE Subjective: No fever or chills. No any acute events overnight Objective: GENERAL APPEARANCE: NAD HEENT: no scleral icterus, no JVD, EOMI CARDIOVASCULAR: S1S2 LUNGS: CTA ABDOMEN: soft & not tender w palpation MUSCULOSKELETAL: no cyanosis, bilateral swelling of distal leg, +1 pitting edema with skin exfoliation's, mild left distal leg erythema, chronic skin changes consistent with venous stasis INTEGUMENT: no generalized pallor NEUROLOGICAL: cranial nerve function from 2-12 intact i, follows commands, speech not dysarthric Assessment and plan Patient is 85 years old female with past medical history of lymphedema presented to hospital with worsening leg swelling Chronic bilateral lymphedema Compression stockings, intermittent pneumatic compression -echo shows EF 75% with grade 1 LV diastolic dysfunction Legs elevation PT /OT, follow-up with lymphedema clinic arterial Doppler ultrasound showed Extensive severe plaquing bilaterally. No high-grade stenosis or occlusion. bilateral standing venous ultrasound will be done on Thursday Cellulitis Most likely secondary to chronic lymphedema and venous stasis Doxycycline p.o. twice daily for 10 days Diabetes type 2 Insulin sliding scale Diabetes diet Morbid obesity BMI of 36.1 Complicated care Hypothyroidism Continue levothyroxine Deconditioning PT/OT VS,Fishbone, I+O VS, Fishbone, I+O Laboratory Tests 01/19/21 06:27 Vital Signs Date Time Temp Pulse Resp B/P (MAP) Pulse Ox O2 Delivery O2 Flow Rate FiO2 01/19/21 06:00 96.9 70 16 131/63 (85) 99 Room Air I&O- Last 24 Hours up to 6 AM 01/19/21 06:00 Intake Total 300 ml Output Total 550 ml Balance -250 ml JOSE SALMON DO Jan 19, 2021 11:54
[2021-01-19 14:00] VITALS: BP 115/78
[2021-01-19 22:00] VITALS: BP 125/63
[2021-01-20 06:00] VITALS: BP 130/90
[2021-01-20 06:52] LABS: BASO % 0.4 % (0.0-1.0); EOS # 0.1 10^3/uL (0.0-0.5); EOS % 2.9 % (0.0-3.0); HEMATOCRIT 40.4 % (36.0-47.0); HEMOGLOBIN 12.8 g/dl (12.0-15.5); LYMPH # 1.6 10^3/uL (1.5-5.0); LYMPH % 32.7 % (24.0-44.0); MEAN CORPUSCULAR HGB CONC 31.7 g/dl (32.0-36.5); MEAN CORPUSCULAR VOLUME 91.4 fl (80.0-96.0); MONO # 0.4 10^3/uL (0.0-0.8); MONO % 8.3 % (2.0-8.0); NEUTROPHILS # 2.6 10^3/uL (1.5-8.5); NEUTROPHILS % 55.1 % (36.0-66.0); PLATELET COUNT, AUTOMATED 196 10^3/uL (150-450); RED BLOOD COUNT 4.42 10^6/uL (4.00-5.40); WHITE BLOOD COUNT 4.8 10^3/uL (4.0-10.0)
[2021-01-20 07:25] LABS: ALBUMIN 2.8 GM/DL (3.2-5.2); ALT/SGPT 16 U/L (12-78); BILIRUBIN,TOTAL 0.3 MG/DL (0.2-1.0); BLOOD UREA NITROGEN 28 MG/DL (7-18); CALCIUM LEVEL 8.9 MG/DL (8.8-10.2); CARBON DIOXIDE LEVEL 31 MEQ/L (21-32); CHLORIDE LEVEL 110 MEQ/L (98-107); CREATININE FOR GFR 0.81 MG/DL (0.55-1.30); GLOMERULAR FILTRATION RATE > 60.0 (>32); GLUCOSE, FASTING 93 MG/DL (70-100); MAGNESIUM LEVEL 2.3 MG/DL (1.8-2.4); POTASSIUM SERUM 3.9 MEQ/L (3.5-5.1); SODIUM LEVEL 145 MEQ/L (136-145); TOTAL PROTEIN 5.9 GM/DL (6.4-8.2)
[2021-01-20] MEDS: HumaLOG INSULIN (NovoLOG) PER UNIT SC SCH ×4 (07:30→20:58)
[2021-01-20] MEDS: DOCUSATE SODIUM 100MG CAPSULE PO SCH ×2 (09:38→21:38)
[2021-01-20] MEDS: DIMETHICONE 2% OINTMENT(VANICREAM) 70GM TUBE TOP SCH (09:38)
[2021-01-20] MEDS: LEVOTHYROXINE 25MCG TABLET (0.025MG) PO SCH (09:38)
[2021-01-20] MEDS: DOXYCYCLINE HYCLATE 100MG TABLET PO SCH (09:38)
[2021-01-20] MEDS: ENOXAPARIN 40MG/0.4ML SYRINGE (J1650 PER 10MG) SC SCH (09:38)
--- NOTE | 2021-01-20 12:47 | IPNPDOC ---
Text Note Date of Service The patient was seen on 01/20/21. NOTE Hospitalist Progress Note Subjective: Patient is sitting upright in the chair today. Her major complaint at this time is left knee pain. She has difficulty describing some specific style of brace that she wishes to have, she does not want a knee brace with metal in it, but s he also does not want a neoprene sleeve, she wants something with straps on it. I will try to contact physical therapy to see if he has anything like this, otherwise she may have to obtain it on her own as an outpatient. Otherwise, she does not have any other specific complaints at this time. The bilateral lower extremities continue to be edematous. Objective: General: Awake, alert, oriented 3. Not in any acute distress. HEENT: Head normocephalic, atraumatic, sclera are nonicteric. Hearing is grossly intact to conversation. Respiratory: Clear to auscultation bilaterally with no wheezes, rales, or rhonchi. Cardiovascular: Regular rate and rhythm, with no rubs, gallops, or murmur. Abdomen: Soft, nontender, nondistended, no hepatosplenomegaly appreciated. Bowel sounds present. Extremities: Bilateral lower extremity lymphedema to the bilateral knees. She does have compression stockings on at this time. Assessment: Bilateral lower extremity lymphedema Bilateral lower extremity venous stasis dermatitis -Consultation from shipping specialist is greatly appreciated. The patient is scheduled to have a bilateral standing venous ultrasound tomorrow (Thursday). -Per their recommendations, antibiotic therapy is not indicated at this time, and it is not bilateral lower extremity cellulitis, but rather venous stasis insufficiency combined with lymphedema, therefore antibiotics will be discontinued at this time. Plan: If patient continues to do well clinically, would anticipate discharge tomorrow after performing bilateral standing venous ultrasound. VS,Fishbone, I+O VS, Fishbone, I+O Laboratory Tests 01/20/21 06:12 Vital Signs Date Time Temp Pulse Resp B/P (MAP) Pulse Ox O2 Delivery O2 Flow Rate FiO2 01/20/21 06:00 96.8 65 16 130/90 (103) 98 Room Air I&O- Last 24 Hours up to 6 AM 01/20/21 06:00 Intake Total 1345 ml Output Total 300 ml Balance 1045 ml RAY HIDALGO DO Jan 20, 2021 12:47
[2021-01-20 14:00] VITALS: BP 116/78
[2021-01-20 22:00] VITALS: BP 111/57
[2021-01-21 06:00] VITALS: BP 107/64
[2021-01-21 06:18] LABS: BASO % 0.4 % (0.0-1.0); EOS # 0.1 10^3/uL (0.0-0.5); EOS % 2.6 % (0.0-3.0); HEMATOCRIT 40.8 % (36.0-47.0); LYMPH # 1.7 10^3/uL (1.5-5.0); MEAN CORPUSCULAR HEMOGLOBIN 29.5 pg (27.0-33.0); MEAN CORPUSCULAR HGB CONC 31.9 g/dl (32.0-36.5); MEAN CORPUSCULAR VOLUME 92.7 fl (80.0-96.0); MONO # 0.4 10^3/uL (0.0-0.8); MONO % 7.9 % (2.0-8.0); NEUTROPHILS # 2.6 10^3/uL (1.5-8.5); NEUTROPHILS % 53.3 % (36.0-66.0); PLATELET COUNT, AUTOMATED 204 10^3/uL (150-450); WHITE BLOOD COUNT 4.9 10^3/uL (4.0-10.0)
[2021-01-21 06:49] LABS: ALBUMIN 2.8 GM/DL (3.2-5.2); ALT/SGPT 16 U/L (12-78); BILIRUBIN,TOTAL 0.3 MG/DL (0.2-1.0); BLOOD UREA NITROGEN 25 MG/DL (7-18); CALCIUM LEVEL 8.3 MG/DL (8.8-10.2); CARBON DIOXIDE LEVEL 31 MEQ/L (21-32); CHLORIDE LEVEL 110 MEQ/L (98-107); CREATININE FOR GFR 0.67 MG/DL (0.55-1.30); GLOMERULAR FILTRATION RATE > 60.0 (>32); GLUCOSE, FASTING 90 MG/DL (70-100); MAGNESIUM LEVEL 2.4 MG/DL (1.8-2.4); POTASSIUM SERUM 4.3 MEQ/L (3.5-5.1); SODIUM LEVEL 144 MEQ/L (136-145); TOTAL PROTEIN 5.9 GM/DL (6.4-8.2)
[2021-01-21] MEDS: HumaLOG INSULIN (NovoLOG) PER UNIT SC SCH ×4 (07:30→21:00)
[2021-01-21] MEDS: LEVOTHYROXINE 25MCG TABLET (0.025MG) PO SCH (08:31)
[2021-01-21] MEDS: DIMETHICONE 2% OINTMENT(VANICREAM) 70GM TUBE TOP SCH (08:31)
[2021-01-21] MEDS: DOCUSATE SODIUM 100MG CAPSULE PO SCH ×2 (08:31→21:17)
[2021-01-21] MEDS: ENOXAPARIN 40MG/0.4ML SYRINGE (J1650 PER 10MG) SC SCH (08:31)
[2021-01-21 14:00] VITALS: BP 108/69
--- NOTE | 2021-01-21 20:35 | IPNPDOC ---
Text Note Date of Service The patient was seen on 01/21/21. NOTE Hospitalist Progress Note Subjective: Patient is once again sitting in her chair today with her feet hanging down towards the floor, despite the recommendations to maintain her bilateral lower extremities elevated. She is quite talkative today, and is easily distracted and talks about a variety of off-topic subjects. Nevertheless, she does appear to be feeling well at this time, she does not have any acute complaints. Objective: General: Awake, alert, oriented 3. Not in any acute distress. HEENT: Head normocephalic, atraumatic, sclera are nonicteric. Hearing is grossly intact to conversation. Respiratory: Clear to auscultation bilaterally with no wheezes, rales, or rhonchi. Cardiovascular: Regular rate and rhythm, with no rubs, gallops, or murmur. Abdomen: Soft, nontender, nondistended, no hepatosplenomegaly appreciated. Bowel sounds present. Extremities: Bilateral lower extremity lymphedema to the bilateral knees. She does have compression stockings on at this time. Assessment: Bilateral lower extremity lymphedema Bilateral lower extremity venous stasis dermatitis -Consultation from interactive media marketing specialist is greatly appreciated, it is their request that we perform a bilateral standing venous ultrasound tomorrow prior to discharge. -Antibiotic therapy has been discontinued, she continues to do well clinically. Plan: Patient was seen and evaluated by physical therapy, and she is safe for discharge at this time. She was supposed to have a bilateral standing venous ultrasound performed today, however they were unable to perform this due to volume of work and lack of manpower. Hopefully she will be first on the list tomorrow morning, and then she can be discharged thereafter. VS,Fishbone, I+O VS, Fishbone, I+O Laboratory Tests 01/21/21 05:45 Vital Signs Date Time Temp Pulse Resp B/P (MAP) Pulse Ox O2 Delivery O2 Flow Rate FiO2 01/21/21 14:00 96.8 89 17 108/69 (82) 92 Room Air I&O- Last 24 Hours up to 6 AM 01/21/21 06:00 Intake Total 1770 ml Output Total 0 ml Balance 1770 ml RAY HIDALGO DO Jan 21, 2021 20:35
[2021-01-21 22:00] VITALS: BP 110/64
[2021-01-22 06:00] VITALS: BP 103/62
[2021-01-22] MEDS ORDERED: LEVOTHYROXINE 25MCG TABLET (0.025MG) PO SCH (06:00)
[2021-01-22 06:08] LABS: BASO % 0.4 % (0.0-1.0); EOS # 0.2 10^3/uL (0.0-0.5); EOS % 2.8 % (0.0-3.0); HEMATOCRIT 39.4 % (36.0-47.0); HEMOGLOBIN 12.4 g/dl (12.0-15.5); LYMPH # 1.8 10^3/uL (1.5-5.0); LYMPH % 33.3 % (24.0-44.0); MEAN CORPUSCULAR HEMOGLOBIN 28.8 pg (27.0-33.0); MEAN CORPUSCULAR HGB CONC 31.5 g/dl (32.0-36.5); MEAN CORPUSCULAR VOLUME 91.4 fl (80.0-96.0); MONO # 0.5 10^3/uL (0.0-0.8); MONO % 8.9 % (2.0-8.0); NEUTROPHILS # 2.9 10^3/uL (1.5-8.5); NEUTROPHILS % 53.5 % (36.0-66.0); PLATELET COUNT, AUTOMATED 182 10^3/uL (150-450); RED BLOOD COUNT 4.31 10^6/uL (4.00-5.40); WHITE BLOOD COUNT 5.4 10^3/uL (4.0-10.0)
[2021-01-22 06:33] LABS: ALBUMIN 2.7 GM/DL (3.2-5.2); ALT/SGPT 16 U/L (12-78); BILIRUBIN,TOTAL 0.4 MG/DL (0.2-1.0); BLOOD UREA NITROGEN 27 MG/DL (7-18); CALCIUM LEVEL 8.3 MG/DL (8.8-10.2); CARBON DIOXIDE LEVEL 30 MEQ/L (21-32); CHLORIDE LEVEL 110 MEQ/L (98-107); CREATININE FOR GFR 0.73 MG/DL (0.55-1.30); GLOMERULAR FILTRATION RATE > 60.0 (>32); GLUCOSE, FASTING 136 MG/DL (70-100); MAGNESIUM LEVEL 2.2 MG/DL (1.8-2.4); POTASSIUM SERUM 4.6 MEQ/L (3.5-5.1); SODIUM LEVEL 141 MEQ/L (136-145); TOTAL PROTEIN 5.7 GM/DL (6.4-8.2)
[2021-01-22] MEDS: DIMETHICONE 2% OINTMENT(VANICREAM) 70GM TUBE TOP SCH (07:53)
[2021-01-22] MEDS: HumaLOG INSULIN (NovoLOG) PER UNIT SC SCH ×2 (07:53→12:00)
[2021-01-22] MEDS: DOCUSATE SODIUM 100MG CAPSULE PO SCH (07:53)
[2021-01-22] MEDS: ENOXAPARIN 40MG/0.4ML SYRINGE (J1650 PER 10MG) SC SCH (07:54)
--- NOTE | 2021-01-22 12:42 | REP ---
INDICATION: bilateral standing venous ultrasounds COMPARISON: None. TECHNIQUE: Real time compression and duplex Doppler interrogation of the bilateral lower extremity deep venous system is performed. Evaluation for venous reflux is performed bilaterally. FINDINGS: Bilaterally, the common femoral, superficial femoral and popliteal veins are fully compressible with transducer pressure and demonstrate normal spontaneous and phasic flow, without evidence of deep venous thrombosis. There is no evidence of reflux in the bilateral deep venous systems nor in the bilateral greater saphenous or lesser saphenous veins. The right greater saphenous vein measures 4 mm throughout. The left greater saphenous vein measures 5 mm at the saphenofemoral junction and 4 mm more peripherally. The right lesser saphenous vein measures 3 mm and a left 2 mm. IMPRESSION: No evidence of deep venous thrombosis of the bilateral lower extremity femoral popliteal venous system. No evidence of venous reflux bilaterally as discussed above. <Electronically signed by Denis Chan > 01/22/21 [id number]
--- NOTE | 2021-01-22 16:11 | DS.PDOC ---
Discharge Summary General Date of Admission Jan 15, 2021 at 23:56 Date of Discharge 01/22/2021 Primary Care Physician: [place] Rosales Attending Physician: RAUL ERNST DO Specialist/Consultants Involve: Naveed Milton MD Discharge Summary PROCEDURES PERFORMED DURING STAY: None. ADMITTING DIAGNOSES: 1. Worsening lower extremity edema. 2. Lower extremity bilateral pain 3. Diabetes mellitus 4. Hypothyroidism 5. Obesity DISCHARGE DIAGNOSES: 1. Bilateral lower extremity lymphedema 2. Bilateral lower extremity venous stasis dermatitis 3. Diabetes mellitus 4. Hypothyroidism 5. Obesity COMPLICATIONS/CHIEF COMPLAINT: Lymphedema,Swellling Of Lower Extremity. HISTORY OF PRESENT ILLNESS: Patient is an 85-year-old female with a history of lymphedema in the lower extremity swelling called her primary care office today complaining of worsening lower extremity edema was instructed to come to the emergency department. In the emergency department, patient complains that over the past several weeks her lower extremity edema has worsened making it difficult to ambulate. Patient says she lives at home and is independent. She has been noncompliant with her torsemide according to her primary care provider although the patient disagrees with this. Patient claims significant lower extremity pain bilaterally, for many weeks. Patient denies any fevers or chills. Denies any pus coming from the wounds. Patient will be admitted for management of worsening lower extremity edema with IV diuresis and pain control.. HOSPITAL COURSE: Patient had a consultation with wound care via telemedicine who recommended that a referral to lymphedema clinic is a possibility but this may be difficult based on the patient's age. Patient should be in a mild Trendelenburg position. Patient's legs did get better over time. Patient continue to work with physical and Occupational Therapy and was able to improve. Patient was going to be discharged however, the patient had a standing venous ultrasound ordered for 01/21/2021. This was unable to be performed so the patient was kept an extra night. Patient was then discharged on 01/22/2021. Patient was discharged home. Patient's leg did improve with the diuresis and keeping the legs elevated. Patient was not sent home on antibiotics as the patient did not need them as they were not indicated because the patient's lower extremity redness was venous stasis dermatitis versus cellulitis. Patient was doing well was discharged home on 01/22/2021. DISCHARGE MEDICATIONS: Please see below. ALLERGIES: Please see below. PHYSICAL EXAMINATION ON DISCHARGE: VITAL SIGNS: Please see below. General: Alert and oriented female patient who was sitting up in bed when I walked in. Patient not appear to be in any acute distress. HEENT: Normocephalic, atraumatic, moist mucous membranes. Neck: No lymphadenopathy or thyromegaly Cardiac: Regular rate and rhythm, no murmurs, normal S1, normal S2 Pulm: Clear to auscultation bilaterally. No wheezes, rhonchi, rales Abd: Nondistended, nontender to palpation, normal bowel sounds Ext: 1+ edema in the bilateral lower extremities to the knees. Patient does have Tubigrip compression stockings on LABORATORY DATA: Please see below. IMAGING: Duplex lower extremity ultrasound on the bilateral lower extremities performed on 01/15/2021 was reported to show no evidence of DVT. Subcutaneous edema Bilateral lower extremity arterial ultrasound formed on 01/18/2021 is reported shows extensive severe plaquing bilaterally. No high-grade stenosis or occlusion. Monophasic arterial Doppler waveforms bilaterally. Bilateral standing venous ultrasound performed on 01/22/2021 is reported to show no evidence of DVT in the bilateral lower extremity femoral-popliteal venous systems. No evidence of venous reflux bilaterally. PROGNOSIS: Fair ACTIVITY: As tolerated. DIET: Consistent carbohydrate DISCHARGE PLAN: Discharge home DISPOSITION: 01 Home, Self-Care. DISCHARGE INSTRUCTIONS: 1. Follow-up with your primary care provider within 3 to 5 days of discharge 2. Follow-up with wound care within a week of discharge 3. Follow-up with lymphedema clinic. 4. Return the emergency department if symptoms worsen ITEMS TO FOLLOWUP ON ON OUTPATIENT: 1. Monitoring the patient's lower extremity edema. DISCHARGE CONDITION: Stable. TIME SPENT ON DISCHARGE: 35 minutes. Vital Signs/I&Os Vital Signs Date Time Temp Pulse Resp B/P (MAP) Pulse Ox O2 Delivery O2 Flow Rate FiO2 01/22/21 06:00 97.7 60 16 103/62 (76) 98 Room Air I&O- Last 24 Hours up to 6 AM 01/22/21 06:00 Intake Total 240 ml Output Total 100 ml Balance 140 ml Laboratory Data Labs 24H Laboratory Tests 2 01/21/21 17:21: Bedside Glucose (Misc Panel) 99 01/21/21 20:54: Bedside Glucose (Misc Panel) 108 01/22/21 05:49: Immature Granulocyte % (Auto) 1.1, Neutrophils (%) (Auto) 53.5, Lymphocytes (%) (Auto) 33.3, Monocytes (%) (Auto) 8.9H, Eosinophils (%) (Auto) 2.8, Basophils (%) (Auto) 0.4, Neutrophils # (Auto) 2.9, Lymphocytes # (Auto) 1.8, Monocytes # (Auto) 0.5, Eosinophils # (Auto) 0.2, Basophils # (Auto) 0.0, Nucleated Red Blood Cells % (auto) 0.0, Anion Gap 1L, Glomerular Filtration Rate > 60.0, Calcium Level 8.3L, Magnesium Level 2.2, Total Bilirubin 0.4, Aspartate Amino Transf (AST/SGOT) 18, Alanine Aminotransferase (ALT/SGPT) 16, Alkaline Phosphatase 67, Total Protein 5.7L, Albumin 2.7L, Albumin/Globulin Ratio 0.9L 01/22/21 12:39: Bedside Glucose (Misc Panel) 74L CBC/BMP Laboratory Tests 01/22/21 05:49 FSBS Laboratory Tests Test 01/21/21 17:21 01/21/21 20:54 01/22/21 12:39 Range/Units Bedside Glucose (Misc Panel) 99 108 74 83-110 MG/DL Microbiology Microbiology 01/15/21 Blood Culture - Final, Complete NO GROWTH AFTER 5 DAYS 01/15/21 Blood Culture - Final, Complete NO GROWTH AFTER 5 DAYS Discharge Medications Scheduled Ergocalciferol (Vitamin D2) (Vitamin D2) 50,000 Units Cap, 50,000 UNITS PO Q2WK, (Reported) Levothyroxine Sodium (Levothyroxine Sodium) 25 Mcg Tablet, 25 MCG PO DAILY, (Reported) Metformin HCl (Metformin HCl ER) 500 Mg Tab, 500 MG PO DAILY, (Reported) TAKES WITH LUNCH BETWEEN [id number] Torsemide (Torsemide) 20 Mg Tablet, 20 MG PO DAILY, (Reported) Scheduled PRN Acetaminophen (Acetaminophen) 325 Mg Tablet, 650 MG PO Q4H PRN for MILD PAIN or TEMP > 101 Allergies Coded Allergies: Penicillins (Verified Allergy, Intermediate, swelling, 01/15/21) RAUL ERNST DO Jan 22, 2021 16:11
== END 2021-01-22 14:41 | disposition home or self-care (01) | DRG 301 ==
LOC: M ED 18:05 → M ED INP 23:56 → ENRESERV 01-16 00:35 → M MSPAV 01-16 01:32
PROVIDERS: ADMIT Family Medicine; ATTEND Family Medicine
DX: I87.2 Venous insufficiency (chronic) (peripheral) (principal); E03.9 Hypothyroidism, unspecified; E66.01 Morbid (severe) obesity due to excess calories; E11.9 Type 2 diabetes mellitus without complications; I89.0 Lymphedema, not elsewhere classified; I83.12 Varicose veins of left lower extremity with inflammation; I83.11 Varicose veins of right lower extremity with inflammation; R32 Unspecified urinary incontinence; G25.81 Restless legs syndrome; M19.90 Unspecified osteoarthritis, unspecified site; Z96.641 Presence of right artificial hip joint; Z96.651 Presence of right artificial knee joint; Z98.41 Cataract extraction status, right eye; Z98.42 Cataract extraction status, left eye; R60.0 Localized edema; Z68.36 Body mass index [BMI] 36.0-36.9, adult; Z20.822 Contact with and (suspected) exposure to COVID-19; Z88.0 Allergy status to penicillin; Z79.899 Other long term (current) drug therapy; Z79.84 Long term (current) use of oral hypoglycemic drugs

== ENCOUNTER 2021-02-15 13:23 | Outpatient (RCR) | payer MEDICARE, OTHER ==
[~2021-02-15 13:23] MED LIST changes: +ACET1TAB55 PO; +DOXY100T PO; +ERGO500029 PO; +LEVO25TA5 PO; +TORS20TA2 PO
== END 2021-02-19 ==
LOC: M PT 13:23
PROVIDERS: ATTEND Internal Medicine
DX: I89.0 Lymphedema, not elsewhere classified (principal)

== ENCOUNTER → 2021-02-26 | Outpatient (REF) | payer MEDICARE, OTHER | LOC: M SFHCPLAZ 14:24 | PROVIDERS: ATTEND Internal Medicine | DX: E78.00 Pure hypercholesterolemia, unspecified (principal); R60.9 Edema, unspecified; E03.9 Hypothyroidism, unspecified ==

== ENCOUNTER → 2021-02-26 | Outpatient (CLI) | payer MEDICARE, OTHER ==
[2021-02-26 18:43] LABS: ALT/SGPT 12 U/L (12-78); BILIRUBIN,TOTAL 0.5 MG/DL (0.2-1.0); BLOOD UREA NITROGEN 20 MG/DL (7-18); CALCIUM LEVEL 9.3 MG/DL (8.8-10.2); CARBON DIOXIDE LEVEL 30 MEQ/L (21-32); CHLORIDE LEVEL 108 MEQ/L (98-107); CHOLESTEROL LEVEL 216 MG/DL (<200); CREATININE FOR GFR 0.66 MG/DL (0.55-1.30); GLOMERULAR FILTRATION RATE > 60.0 (>32); GLUCOSE, FASTING 70 MG/DL (70-100); HDL CHOLESTEROL 48 MG/DL (>40); LDL CHOLESTEROL 152 MG/DL (<100); MAGNESIUM LEVEL 2.3 MG/DL (1.8-2.4); NON-HDL-C 168 MG/DL; SODIUM LEVEL 143 MEQ/L (136-145); TOTAL PROTEIN 6.4 GM/DL (6.4-8.2); TRIGLYCERIDES LEVEL 82 MG/DL (<150)
== END ==
LOC: M PLALAB 14:36
PROVIDERS: ATTEND Internal Medicine
DX: E78.00 Pure hypercholesterolemia, unspecified (principal); R60.9 Edema, unspecified; E03.9 Hypothyroidism, unspecified; E55.9 Vitamin D deficiency, unspecified
CPT/HCPCS: 36415; 80053; 80061; 82306; 83735; 84443; G0463

== ENCOUNTER 2021-03-20 13:30 | Outpatient (RCR) | payer MEDICARE, OTHER | END 2021-03-21 | LOC: M PT 13:30 | PROVIDERS: ATTEND Internal Medicine | DX: I89.0 Lymphedema, not elsewhere classified (principal) ==

== ENCOUNTER 2021-04-19 13:22 | Outpatient (RCR) | payer MEDICARE, OTHER | END 2021-04-21 | LOC: M PT 13:22 | PROVIDERS: ATTEND Internal Medicine | DX: I89.0 Lymphedema, not elsewhere classified (principal) ==

== ENCOUNTER 2021-05-03 12:00 | Outpatient (RCR) | payer MEDICARE, OTHER | END 2021-05-21 | LOC: M PT 12:00 | PROVIDERS: ATTEND Internal Medicine | DX: I89.0 Lymphedema, not elsewhere classified (principal) ==

== ENCOUNTER → 2022-03-13 | Outpatient (CLI) | payer MEDICARE, OTHER ==
[2022-03-13 16:32] LABS: ALBUMIN 2.8 GM/DL (3.2-5.2); ALKALINE PHOSPHATASE 70 U/L (45-117); ALT/SGPT 19 U/L (12-78); AST/SGOT 21 U/L (7-37); BILIRUBIN,TOTAL 0.4 MG/DL (0.2-1.0); BLOOD UREA NITROGEN 21 MG/DL (7-18); CALCIUM LEVEL 8.8 MG/DL (8.8-10.2); CARBON DIOXIDE LEVEL 30 MEQ/L (21-32); CHLORIDE LEVEL 107 MEQ/L (98-107); CHOLESTEROL LEVEL 197 MG/DL (<200); CHOLESTEROL RISK RATIO 5.969 (<5); CREATININE FOR GFR 0.76 MG/DL (0.55-1.30); GLOMERULAR FILTRATION RATE > 60.0 (>32); GLUCOSE, FASTING 84 MG/DL (70-100); HDL CHOLESTEROL 33 MG/DL (>40); LDL CHOLESTEROL 140 MG/DL (<100); NON-HDL-C 164 MG/DL; POTASSIUM SERUM 4.3 MEQ/L (3.5-5.1); SODIUM LEVEL 141 MEQ/L (136-145); TOTAL PROTEIN 6.3 GM/DL (6.4-8.2); TRIGLYCERIDES LEVEL 119 MG/DL (<150)
[2022-03-13 17:50] LABS: HEMOGLOBIN A1c 5.5 %
== END ==
LOC: M PLALAB 13:00
PROVIDERS: ATTEND Nurse Practitioner Adult Health
DX: E03.9 Hypothyroidism, unspecified (principal); E11.9 Type 2 diabetes mellitus without complications; E78.00 Pure hypercholesterolemia, unspecified